=== PATIENT | male | born 1950 | race Caucasian/White ===

== ENCOUNTER 2016-12-14 11:07 | Inpatient (IN) | payer MEDICARE, OTHER ==
--- NOTE | ~2016-12-14 | CN ---
Consultation Report [facility] [address] [place]. [address] NAME: KELSI COLON : 52 STATUS : ADM Cal PAT#: [id number] AGE: 66 ADM/REG DATE : 12/14/16 MR#: [id number] REPORT SERV DATE: 12/14/16 DICTATED BY: DATE: REPORT STATUS : Draft TRANSCRIBED BY: MODL DATE: 12/14/16 CONSULTATION DATE OF CONSULTATION: 12/14/2016 CHIEF COMPLAINT/REASON FOR CONSULT: Atrial fibrillation with rapid ventricular response. HISTORY OF PRESENT ILLNESS: Mr. Colon is a very pleasant 66-year-old gentleman, without significant past medical history. 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 with the smothering sensation. He thought he was on bronchitis and he has been taking cold medicine for several weeks. He sat in a recliner and felt much better. He also walked around his home and felt better. He went to a [facility] the next day and was diagnosed with atrial fibrillation with rapid ventricular response and sent to the emergency room for additional evaluation. The patient denies any chest pain, nausea, vomiting, or sweating he endorses upper respiratory symptoms and shortness of breath. ALLERGIES: NO KNOWN ALLERGIES. MEDICATIONS: Ibuprofen p.r.n. PAST MEDICAL HISTORY: None. SOCIAL HISTORY: The patient is . His is present at the bedside. He quit smoking about 15 years ago. He drinks two alcoholic beverages per week. He does not use extracurricular drugs. FAMILY HISTORY: Significant for a brother with a history of coronary bypass grafting and diabetes in his 50s. REVIEW OF SYSTEMS: All systems were reviewed and is negative except for dictated in HPI. PHYSICAL EXAMINATION: VITAL SIGNS: Blood pressure on arrival to the Emergency Department 151/104. The patient is afebrile, temperature 97.8, pulse is 140 beats per minute, respirations 18, and oxygen saturations 97%. GENERAL: Mr. Colon is a well-groomed 66-year-old gentleman, in no distress. NECK: I could not appreciate jugular venous distention or carotid bruits. HEART: Tachycardic, irregular. Soft S1 and S2. I could not appreciate murmurs, rubs, or gallops. LUNGS: Clear to auscultation in the anterior dalton. There are slight posterior end expiratory wheezes bilaterally. Consultation Report [facility] [address] [place]. [address] NAME: KELSI COLON : 52 STATUS : ADM Cal PAT#: [id number] AGE: 66 ADM/REG DATE : 12/14/16 MR#: [id number] REPORT SERV DATE: 12/14/16 DICTATED BY: DATE: REPORT STATUS : Draft TRANSCRIBED BY: MODL DATE: 12/14/16 ABDOMEN: Soft and nontender. EXTREMITIES: Warm and well perfused. There is no pitting edema present. MUSCULOSKELETAL: No clubbing or cyanosis of the digits. NEUROLOGIC: No focal neurologic deficits appreciated. LABORATORY DATA: Laboratory results note a mild leukocytosis with a white blood cell count of 11.9, hemoglobin is 17.4 hematocrit 49.8, platelet count 228, procalcitonin less than 0.05. Sodium 140 potassium 4, BUN 18, creatinine 1.22, magnesium 2.1, BNP is 191, TSH is 0.9. An EKG performed in the Emergency Department demonstrated atrial fibrillation with rapid ventricular response at 167 beats per minute. There were nonspecific ST-T segment changes present. A chest x-ray demonstrated mild pulmonary edema. IMPRESSION, REPORT, AND PLAN: 1. Atrial fibrillation with rapid ventricular response. 2. Mild pulmonary edema, secondary to the above. 3. Hypertension. RECOMMENDATIONS: 1. I agree with diltiazem drip as previously ordered. 2. Would switch to Eliquis at 5 mg p.o. twice per day. 3. I discussed the risks, benefits, and alternatives of DC cardioversion with the patient and his at the bedside and they are agreeable to proceed on 12/15/2016. 4. Additional recommendations pending clinical course. [facility]/MODL Savanna Cisneros M.D. / [id number] CC: Samir Olivares Jr, MD
--- NOTE | ~2016-12-14 | TEE ---
Transesophageal Echocardiogram [facility] [address] [place]. [address] NAME: KELSI COLON : 52 STATUS : ADM Cla PAT#: [id number] AGE: 66 ADM/REG DATE : 12/14/16 MR#: [id number] REPORT SERV DATE: 12/15/16 DICTATED BY: LUIS KERN DATE: 12/15/16 REPORT STATUS : Draft TRANSCRIBED BY: MODL DATE: 12/15/16 EMERY AND CARDIOVERSION REPORT INDICATION: This 66-year-old with new onset atrial fibrillation with rapid ventricular response. He is on therapeutic anticoagulation with Eliquis. Informed consent was obtained, signed on the chart prior to proceeding. A time-out was performed. Sedation was per Anesthesia, and esophageal intubation was without difficulty. TECH: The overall quality of the study was adequate. FINDINGS: CHAMBERS: 1. The left atrium was at the upper limits of normal, mildly enlarged. Left atrial appendage was examined with multiple angulations and was large and multilobed with a "chicken wing" morphology. There was no thrombus identified. Pectinates were noted. Spectral Doppler velocity exceeded 20 cm/second. 2. The left ventricle was normal in size with a visually estimated LVEF is 55% to 60%. There were no regional wall motion abnormalities. 3. The right atrium was grossly normal in size. The superior and inferior vena cava appeared normal. There was no mass thrombus seen. 4. The right ventricle was normal in size and systolic function. VALVES: 1. The aortic valve morphology was trileaflet. There was mild thickening/sclerosis with adequate leaflet mobility. There was mild somewhat eccentric aortic regurgitation. 2. The mitral valve morphology was normal with fully mobile leaflets. There was mild mitral regurgitation. 3. The pulmonic valve was grossly normal with adequate mobility. There was no significant pulmonic regurgitation. 4. The tricuspid valve morphology was normal with fully mobile leaflets. There was trivial tricuspid regurgitation. OTHER: The interatrial septum was examined with multiple angulations and was intact by visual inspection with no evidence of interatrial shunt by color Doppler. There was no pericardial effusion. The descending thoracic aorta was normal in caliber with no significant atherosclerosis or aneurysmal dilatation. CARDIOVERSION: 1. First attempt at 200 joules with persistent atrial fibrillation and rapid ventricular response. 2. Second attempt at 300 joules with persistent atrial fibrillation with rapid ventricular response. 5 mg of IV metoprolol was given with rate control improved from 140 beats per minute to 90 to 100 beats per minute. Transesophageal Echocardiogram [address] [address] NAME: KELSI COLON : 52 STATUS : ADM Cal PAT#: [id number] AGE: 66 ADM/REG DATE : 12/14/16 MR#: [id number] REPORT SERV DATE: 12/15/16 DICTATED BY: LUIS KERN. DATE: 12/15/16 REPORT STATUS : Draft TRANSCRIBED BY: MODL DATE: 12/15/16 3. Third attempt at cardioversion with 360 joules attempted with a 5 second pause and a single sinus beat, then persistent atrial fibrillation to controlled ventricular response at 90 to 100 beats per minute. COMPLICATIONS: None. CONCLUSION: 1. NO LEFT ATRIAL APPENDAGE THROMBUS. 2. UNSUCCESSFUL CARDIOVERSION AFTER THREE ATTEMPTS INCLUDING 5 MG OF IV METOPROLOL WITH PERSISTENT ATRIAL FIBRILLATION AND CONTROLLED VENTRICULAR RESPONSE WITH METOPROLOL. 3. NORMAL LV SIZE WITH PRESERVED EF, 55% TO 60%. 4. MILD AORTIC VALVE SCLEROSIS WITH MILD REGURGITATION AND NO STENOSIS. 5. MILD MITRAL REGURGITATION. [facility]/MODL Luis Kern M.D. / [id number] CC: Samir Olivares Jr, MD John Laramore, M.D.
--- NOTE | ~2016-12-14 | HP ---
History And Physical [address] [place]. [address] NAME: KELSI COLON : 52 STATUS : ADM Cal PAT#: [id number] AGE: 66 ADM/REG DATE : 12/14/16 MR#: [id number] REPORT SERV DATE: 12/14/16 DICTATED BY: PRAVEENA BRIGGS DATE: 12/14/16 REPORT STATUS : Draft TRANSCRIBED BY: MODL DATE: 12/14/16 DATE OF ADMISSION: 12/14/2016 CHIEF COMPLAINT: Worsening shortness of breath. HISTORY OF PRESENT ILLNESS: Mr. Colon is a 66-year-old male with no significant medical history, who presented to the emergency room with a complaint of worsening shortness of breath. The patient states that his symptoms started approximately three weeks ago, states that at first he thought it was common cold which he thought would eventfully resolve. He states that his symptoms have progressively worsened. So upon awakening this morning, he decided to present to an urgent care. At the time of presentation at the urgent care, preliminary workup noted. His heart rate to be elevated in the 140s. The patient was instructed to present to the emergency room. Upon presentation to the emergency room, preliminary workup included an EKG which was consistent with AFib with RVR. The patient was therefore admitted under Hospitalist Service for further management. At the time of my evaluation, the patient corroborated the above story. He reports history of sick contacts. He also reports a productive cough of greenish sputum. However, he states that he has no fever, no chills. 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 So he has been in contact with several people and states it is likely that he has had a positive sick contact. Otherwise, he denies any lightheadedness and dizziness. He denies any nausea, any vomiting, or any abdominal pain. He denies any orthopnea or paroxysmal nocturnal dyspnea. He denies any decrease in exercise tolerance. He does report an episode of some cold intolerance. At the time of my evaluation, he states that otherwise he feels well and he has no other complaints. REVIEW OF SYSTEMS: A 14-point review of system was performed. All systems were negative except as noted in the HPI. PAST MEDICAL HISTORY: None. PAST SURGICAL HISTORY: The patient has a history of a knee surgery and sinus surgery over 25 years ago. FAMILY HISTORY: Significant for a brother with type 1 diabetes and coronary artery disease. SOCIAL HISTORY: The patient reports a [id number]-smoking history, stating that he quit smoking about 15 years ago. He states that he uses alcohol socially and denies any illicit drug use. The patient is currently and lives at home with his . ALLERGIES: THE PATIENT REPORTS NO KNOWN DRUG ALLERGIES. PHYSICAL EXAMINATION: VITAL SIGNS: Blood pressure 111/72 with the pulse of 140, respiration 17, O2 saturation 96%, and the patient is afebrile. GENERAL: The patient is lying in bed, in no acute distress, appears stated age. History And Physical [address] [address] NAME: KELSI COLON : 52 STATUS : ADM Cal PAT#: [id number] AGE: 66 ADM/REG DATE : 12/14/16 MR#: [id number] REPORT SERV DATE: 12/14/16 DICTATED BY: PRAVEENA BRIGGS DATE: 12/14/16 REPORT STATUS : Draft TRANSCRIBED BY: SHANELLE DATE: 12/14/16 HEENT: Normocephalic and atraumatic. Extraocular motors intact. Oral mucosa is moist. Pupils are equal, round, and reactive to light and accommodation. Sclerae anicteric. NECK: Full. Trachea midline and symmetric. No JVD noted. No thyromegaly present. No lymphadenopathy appreciated. CHEST: Nontender to palpation. No scars noted. CARDIOVASCULAR: Irregularly irregular rate and rhythm. LUNGS: Clear to auscultation bilaterally. ABDOMEN: Obese. Positive bowel sounds. Nontender. Nondistended. EXTREMITIES: No cyanosis, no clubbing, no edema. NEURO: Alert and oriented x3. No focal deficits appreciated. LABORATORY DATA: WBC 11.9, hemoglobin 17.4, hematocrit 49.8 with an MCV of 90.9, platelets 228. Sodium 140, potassium 4, chloride 104, bicarb 23, BUN 18, and creatinine 1.22. BNP 191.1. UA negative. IMAGING: Portable chest x-ray, impression: Diffuse bilateral interstitial opacity which may represent interstitial edema or chronic disease, no significant abnormalities otherwise. ASSESSMENT AND PLAN: 1. Atrial fibrillation with rapid ventricular response, new onset, CHAD2-VASc score of 2. Anticoagulation indicated. Plan: Start the patient on diltiazem drip. Also place patient on heparin drip. We will consult Cardiology for assistance. 2. Hypertension. Blood pressure on presentation elevated systolic of 151. The patient currently on diltiazem drip. We will monitor blood pressure and initiate therapy as needed. 3. History of tobacco use per guidelines. I will obtain a low-dose CT scan to further evaluate his lungs. Chest x-ray concerning for a chronic disease. Also given his age and family history, we will obtain A1c. SHAWN/SHANELLE Praveena Briggs MD / [id number] CC: Samir Olivares Jr, MD John Laramore, M.D.
--- NOTE | ~2016-12-14 | DS ---
Discharge Summary [facility] [address] [place]. [address] NAME: KELSI COLON : 52 STATUS : DIS IN PAT#: [id number] AGE: 66 ADM/REG DATE : 12/15/16 MR#: [id number] REPORT SERV DATE: 02/02/17 DICTATED BY: DATE: REPORT STATUS : Draft TRANSCRIBED BY: MODL DATE: 02/01/17 Data Collection from hospitalization ADDENDUM: DISPOSITION: The patient was discharged home on a low-sodium, low-cholesterol, cardiac diet with activities as instructed. He would follow up with Dr. Savanna Cisneros on 01/04/2017 and with his primary care provider as needed. HOSPITAL COURSE: This is a 66-year-old man who has no significant past medical history. 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 with a smothering sensation. He thought that he had bronchitis and he had been taking cold medication for several weeks. He sat in a recliner and felt much better. He also walked around his home and felt better. Information collected by: Jaymie Salas I submit the above information as my discharge summary. ALYX/SHANELLE Savanna Cisneros M.D. / [id number] CC: Skyla Lujan M.D.
--- NOTE | ~2016-12-14 | DS ---
Discharge Summary [facility] [address] [place]. [address] NAME: KELSI COLON : 52 STATUS : DIS IN PAT#: [id number] AGE: 66 ADM/REG DATE : 12/15/16 MR#: [id number] REPORT SERV DATE: 01/15/17 DICTATED BY: DATE: REPORT STATUS : Draft TRANSCRIBED BY: MODL DATE: 01/14/17 Data Collection from hospitalization DISCHARGE DIAGNOSES: 1. Atrial fibrillation with rapid ventricular response. 2. Hypertension. 3. Former smoker. CONSULTATIONS: Zeyad Brown MD PROCEDURES: 1. CT scan of the chest without contrast, 12/14/2016. 2. Myocardial perfusion imaging study, 12/16/2016. 3. Transesophageal echocardiogram and cardioversion, 12/15/2016. DISCHARGE MEDICATIONS: Pepcid 20 mg daily, Advil 400 mg daily as needed, Lopressor 50 mg twice a day, Xarelto 20 mg with supper, Betapace 80 mg twice a day. He was instructed not to continue the Z-Jason. CONDITION ON DISCHARGE: Stable. DISPOSITION: The patient was and felt much better. He also walked around his house and felt better. He went to a [facility] facility the following day and was diagnosed with atrial fibrillation with rapid ventricular response. He was sent to the emergency room and admitted at this time for further evaluation and treatment. Upon admission, creatinine level was 1.22. EKG in the emergency department demonstrated atrial fibrillation with rapid ventricular response at 167 beats per minute. There were nonspecific ST-segment changes present. Chest x-ray demonstrated mild pulmonary edema. Cardizem drip had been started. He was going to be switched to Eliquis. White blood cell count was 11.9. It was felt that the patient may need to undergo DC cardioversion. The patient was seen by Dr. Zeyad Brown. Blood pressure on presentation was elevated at systolic of 151. The patient was currently on a diltiazem drip. Hemoglobin A1c was going to be checked. The patient had been started on a heparin drip. On the , the patient underwent transesophageal echocardiogram. There was unsuccessful cardioversion. There was no left atrial appendage thrombus. He had normal left ventricular size with preserved ejection fraction of 55% to 60%. He had mild aortic regurgitation and mitral regurgitation. A CT scan of the chest without contrast was performed. He had small bilateral pleural effusions with dense atelectasis/consolidation in the posterior basilar aspect of both lungs. There was a perifissural nodule in the right upper lobe abutting the minor fissure measuring 4 x 6 mm. It was felt this was likely to represent an intrapulmonary lymph node. Eliquis and metoprolol were continued. TSH level was normal. On 12/16/2016, he had no chest pain or shortness of breath. The patient noticed that he had an elevated heart rate when he was going to the bathroom. Xarelto was continued. Metoprolol was increased. Myocardial perfusion imaging study was performed, this demonstrated no ischemia. Post infusion left ventricular ejection fraction was 31%. The next day, he described having some chest tightness at times. He did not feel like his Discharge Summary [address] [address] NAME: KELSI COLON : 52 STATUS : DIS IN [facility]#: [id number] AGE: 66 ADM/REG DATE : 12/15/16 MR#: [id number] REPORT SERV DATE: 01/15/17 DICTATED BY: DATE: REPORT STATUS : Draft TRANSCRIBED BY: MODL DATE: 01/14/17 heart was racing. Discharge planning was performed. On 12/18/2016, he had no chest pain or shortness of breath. He had no palpitations. Metoprolol was continued as well sotalol and Xarelto. Ibutilide was given and he was in a sinus rhythm at 70 beats per minute. Discharge instructions were given. Due to his improved and stable condition, he was discharged home with the above-stated instructions. Information collected by: Jaymie Salas I submit the above information as my discharge summary. TG/MODL Savanna Cisneros M.D. / [id number] CC: Skyla Lujan M.D.
[2016-12-14 12:07] LABS: BASOPHILS 0.3 %; BASOPHILS ABSOLUTE 0.03 10/3/uL (0.0-0.16); EOSINOPHILS 0.4 %; EOSINOPHILS ABSOLUTE 0.05 10/3/uL (0.0-0.53); ER CBC TAT 0 Hrs 09 Mins; HEMATOCRIT 49.8 % (40.0-51.0); HEMOGLOBIN 17.4 g/dL (13.6-17.8); IMMATURE GRANULOCYTES 0.3 %; IMMATURE GRANULOCYTES ABSOLUTE 0.04 10/3/uL (0.0-0.11); LYMPHOCYTES 10.7 %; LYMPHOCYTES ABSOLUTE 1.27 10/3/uL (0.67-4.30); MEAN CORPUS HGB CONC 34.9 g/dL (32.0-36.0); MEAN CORPUSCULAR HEMOGLOB 31.8 pg (26.0-34.0); MEAN CORPUSCULAR VOLUME 90.9 fL (80-100); MEAN PLATELET VOLUME 9.8 fL (9.2-13.0); MONOCYTES 6.6 %; MONOCYTES ABSOLUTE 0.78 10/3/uL (0.21-1.20); NEUTROPHILS 81.7 %; NEUTROPHILS ABSOLUTE 9.69 10/3/uL (2.02-8.40); PLATELET COUNT 228 10/3/uL (150-400); RBC DISTRIBUTION WIDTH 12.9 % (12.0-16.0); RED CELL COUNT 5.48 10/6/uL (4.7-6.1); WHITE BLOOD CELLS 11.9 10/3/uL (4.5-10.5)
[2016-12-14] MEDS ORDERED: ADVIL PO (12:08)
[2016-12-14 12:12] LABS: MANUAL DIFF NO %
[2016-12-14 12:13] LABS: INTERNATIONAL NORMAL RATI 1.1 UNITS (-); PARTIAL THROMBO TIME 27.4 SEC (22.5-37.2); PROTIME (NOT ORD) 13.6 SEC (12.0-14.5)
[2016-12-14] MEDS ORDERED: Z-PAK PO (12:15)
[2016-12-14 12:33] LABS: BUN (BLOOD UREA NITROGEN) 18 MG/DL (6-23); CALCIUM, SERUM 8.8 MG/DL (8.5-10.4); CHLORIDE, SERUM 104 MMOL/L (96-112); CO2 (CARBON DIOXIDE) 23 MMOL/L (24-34); CREATININE 1.22 MG/DL (0.70-1.30); GFR AFRICAN AMERICAN 72 ML/MIN (>=60); GFR NON AFRICAN AMERICAN 62 ML/MIN (>=60); GLUCOSE, SERUM 123 MG/DL (60-99); SODIUM, SERUM 140 MMOL/L (135-148); TROPONIN I 0.03 NG/ML (<0.05)
[2016-12-14 12:34] LABS: CHEST PAIN PROFILE TAT 0 Hrs 35 Mins
[2016-12-14 13:56] LABS: WBC (NOT ORDERED) (RFLEX) 0 (0-5)
[2016-12-14 14:01] LABS: ASCORBIC ACID (UR NOT ORDER) NEG (NEG); BILIRUBIN, URINE NEGATIVE (NEG); ER URINALYSIS TAT 0 Hrs 07 Mins; KETONE, URINE TRACE MG/DL (NEG); LEUKOCYTE ESTERASE(NOT OR NEG (NEG); NITRITE (URINE) NEG (NEG)
[2016-12-14 14:45] LABS: PROCALCITONIN <0.05 ng/mL (<0.5)
[2016-12-15 05:39] LABS: BASOPHILS 0.6 %; BASOPHILS ABSOLUTE 0.06 10/3/uL (0.0-0.16); EOSINOPHILS 2.1 %; HEMOGLOBIN 14.6 g/dL (13.6-17.8); IMMATURE GRANULOCYTES 0.3 %; IMMATURE GRANULOCYTES ABSOLUTE 0.03 10/3/uL (0.0-0.11); LYMPHOCYTES 28.4 %; LYMPHOCYTES ABSOLUTE 2.75 10/3/uL (0.67-4.30); MEAN CORPUS HGB CONC 34.8 g/dL (32.0-36.0); MEAN CORPUSCULAR HEMOGLOB 31.6 pg (26.0-34.0); MEAN CORPUSCULAR VOLUME 90.7 fL (80-100); MEAN PLATELET VOLUME 9.6 fL (9.2-13.0); MONOCYTES 10.4 %; MONOCYTES ABSOLUTE 1.01 10/3/uL (0.21-1.20); NEUTROPHILS 58.2 %; NEUTROPHILS ABSOLUTE 5.65 10/3/uL (2.02-8.40); PLATELET COUNT 191 10/3/uL (150-400); RBC DISTRIBUTION WIDTH 13.2 % (12.0-16.0); RED CELL COUNT 4.62 10/6/uL (4.7-6.1); WHITE BLOOD CELLS 9.7 10/3/uL (4.5-10.5)
[2016-12-15 05:42] LABS: HEMATOCRIT 41.9 % (40.0-51.0); MANUAL DIFF NO %
[2016-12-15 05:58] LABS: A/G RATIO 1.3 (0.7-1.9); ALBUMIN 3.4 G/DL (3.5-5.0); ALKALINE PHOSPHATASE 77 U/L (45-117); BUN (BLOOD UREA NITROGEN) 17 MG/DL (6-23); CALCIUM, SERUM 8.4 MG/DL (8.5-10.4); CHLORIDE, SERUM 105 MMOL/L (96-112); CHOL/HDL RATIO(NOT ORDER) 2.5 (0-5); CHOLESTEROL 133 MG/DL (< 200); CO2 (CARBON DIOXIDE) 24 MMOL/L (24-34); CREATININE 1.07 MG/DL (0.70-1.30); GFR AFRICAN AMERICAN 84 ML/MIN (>=60); GFR NON AFRICAN AMERICAN 72 ML/MIN (>=60); GLOBULIN 2.6 G/DL (2.5-4.1); GLUCOSE, SERUM 99 MG/DL (60-99); HDL CHOLESTEROL 54 MG/DL (> 39); LDL CHOLESTEROL 58 MG/DL (< 130); NON-HDL CHOLESTEROL 79 MG/DL (< 160); POTASSIUM, SERUM 3.9 MMOL/L (3.5-5.3); SGOT(AST) 19 U/L (5-40); SGPT(ALT) 47 U/L (5-65); SODIUM, SERUM 140 MMOL/L (135-148); TOTAL BILIRUBIN 1.8 MG/DL (0-1.2); TRIGLYCERIDE 105 MG/DL (< 150)
[2016-12-18 05:17] LABS: HEMOGLOBIN 16.4 g/dL (13.6-17.8); MEAN CORPUS HGB CONC 34.2 g/dL (32.0-36.0); MEAN CORPUSCULAR HEMOGLOB 31.6 pg (26.0-34.0); MEAN CORPUSCULAR VOLUME 92.3 fL (80-100); MEAN PLATELET VOLUME 9.9 fL (9.2-13.0); PLATELET COUNT 197 10/3/uL (150-400); RBC DISTRIBUTION WIDTH 13.4 % (12.0-16.0); RED CELL COUNT 5.19 10/6/uL (4.7-6.1); WHITE BLOOD CELLS 10.8 10/3/uL (4.5-10.5)
[2016-12-18 05:18] LABS: HEMATOCRIT 47.9 % (40.0-51.0); MANUAL DIFF YES %
[2016-12-18 05:30] LABS: CALCIUM, SERUM 8.3 MG/DL (8.5-10.4); CHLORIDE, SERUM 109 MMOL/L (96-112); CO2 (CARBON DIOXIDE) 23 MMOL/L (24-34); GFR AFRICAN AMERICAN 66 ML/MIN (>=60); GFR NON AFRICAN AMERICAN 57 ML/MIN (>=60); GLUCOSE, SERUM 108 MG/DL (60-99); INTERNATIONAL NORMAL RATI 2.2 UNITS (-); SODIUM, SERUM 142 MMOL/L (135-148)
[2016-12-18 05:31] LABS: PROTIME (NOT ORD) 24.6 SEC (12.0-14.5)
[2016-12-18 05:34] LABS: BUN (BLOOD UREA NITROGEN) 21 MG/DL (6-23)
[2016-12-18 06:51] LABS: BAND NEUTROPHILS 1 %; EOSINOPHILS 1 %; EOSINOPHILS ABSOLUTE (CALC) 0.11 10/3/uL (0.0-0.53); LYMPHOCYTES 23 %; LYMPHOCYTES ABSOLUTE (CALC) 2.48 10/3/uL (0.67-4.30); MONOCYTES 5 %; MONOCYTES ABSOLUTE (CALC) 0.54 10/3/uL (0.21-1.20); NEUTROPHILS ABSOLUTE (CALC) 7.67 10/3/uL (2.02-8.40); SEGMENTED NEUTROPHIL (0) 70 %; TOTAL NUCLEATED CELLS 100
[2016-12-18 06:52] LABS: GIANT PLATELET RARE; PLATELET ESTIMATE ADQ (ADEQUATE); RBC MORPHOLOGY NORM (NORMAL)
[2016-12-18] MEDS ORDERED: PEP20 PO (13:12)
[2016-12-18] MEDS ORDERED: LOP50 PO (13:13)
[2016-12-18] MEDS ORDERED: XARELTO20 MG PO (13:14)
[2016-12-18] MEDS ORDERED: BETAPACE80 PO (13:15)
== END 2016-12-18 14:30 | disposition home or self-care (01) | DRG 309 ==
LOC: ER 11:07 → CDU1 17:06 → 6NO 12-17 08:01
PROVIDERS: Emergency Medicine; Hospitalist; Internal Medicine
PROC: B246ZZ4 Ultrasonography of Right and Left Heart, Transesophageal (ICD-10-PCS; principal; 2016-12-15)
PROC: 5A2204Z Restoration of Cardiac Rhythm, Single (ICD-10-PCS; 2016-12-15)
DX: I48.1 Persistent atrial fibrillation (principal); J81.1 Chronic pulmonary edema; I10 Essential (primary) hypertension; Z87.891 Personal history of nicotine dependence; Z83.3 Family history of diabetes mellitus
CPT/HCPCS: 71010; 71250; 78452; 80048; 80053; 80061; 81001; 82962; 83036; 83735; 83880; 84145; 84443; 84484; 85025; 85610; 85730; 87040; 92960; 93005; 93017; 93312; 93320; 93325; 96365; 96366; 96376; 99285; A9270-GY; A9502; J0153; J1742

== ENCOUNTER 2016-12-25 10:00 | Observation (INO) | payer MEDICARE, OTHER ==
--- NOTE | ~2016-12-25 | CN ---
Consultation Report [facility] [address] [place]. [address] NAME: KELSI COLON : 52 STATUS : DIS Cal PAT#: [id number] AGE: 66 ADM/REG DATE : 12/25/16 MR#: [id number] REPORT SERV DATE: 12/25/16 DICTATED BY: HEMA AQUINO DATE: 12/25/16 REPORT STATUS : Draft TRANSCRIBED BY: MODL DATE: 12/25/16 ELECTROPHYSIOLOGY CONSULTATION DATE OF CONSULTATION: [facility] PHYSICIAN: Dr. Cisneros. PRIMARY PROVIDER: Dr. Corrales. REQUESTING PROVIDER: Dr. Hendrickson. He had received a call by the patient earlier this morning and requested EP consultation and Dr. Moore in the emergency room. HISTORY OF PRESENT ILLNESS: Mr. Kelsi Colon is a very pleasant 66-year-old man with new onset of paroxysmal atrial fibrillation. Of interest, it has been refractory to cardioversion. The patient underwent two attempts at cardioversion middle of the week ago, both were unsuccessful. The next day, he was given ibutilide with return to sinus rhythm. He did well for several days. Then last evening had recurrent symptoms of some mild chest pressure and increased heart rate. He went to sleep, woke up this morning, was still in atrial fibrillation and opted to come to the emergency room. He presented to the emergency room in atrial fibrillation with RVR with an ECG heart rate of 140 beats per minute. I was contacted earlier by the ER doctor and at that point, the patient was given ibutilide 1 mg and the patient did convert back to sinus bradycardia. Followup ECG is pending and based on that, we will make decisions regarding further adjustment of his antiarrhythmic therapy. The patient reports no significant past medical history other than atrial fibrillation. SOCIAL HISTORY: Quit smoking 15 years ago. Rare alcohol. . Retired, for 2 weeks, he used to run a golf course. FAMILY HISTORY: Notable for premature CAD. REVIEW OF SYSTEMS: As per the HPI. Otherwise, all the review of systems negative. MEDICATIONS: At home are Pepcid; Lopressor; Xarelto; and sotalol 80 mg b.i.d. ALLERGIES: NONE KNOWN. PHYSICAL EXAMINATION: VITAL SIGNS: Blood pressure 107/73, pulse 43 after a pharmacologic cardioversion with ibutilide, respiratory rate 18, and oxygen saturation 96% on room air. GENERAL: Appears stated age, no distress. EYES: Sclerae anicteric, no arcus senilis. MOUTH: Oral mucosa moist, lips acyanotic. Consultation Report [facility] [place]. [address] NAME: KELSI COLON : 52 STATUS : DIS Cal PAT#: [id number] AGE: 66 ADM/REG DATE : 12/25/16 MR#: [id number] REPORT SERV DATE: 12/25/16 DICTATED BY: HEMA AQUINO DATE: 12/25/16 REPORT STATUS : Draft TRANSCRIBED BY: SHANELLE DATE: 12/25/16 NECK: Jugular venous pressure normal, no carotid bruits. LUNGS: Clear to auscultation bilaterally, normal inspiratory effort. CARDIAC: Irregular rhythm with bradycardia rhythm, no murmurs, gallops or rubs. ABDOMEN: Soft, nondistended, nontender. EXTREMITIES: No edema. SKIN: Warm and dry. NEURO/PSYCH: Alert and oriented, nonfocal, mood appropriate. IMAGING: EMERY demonstrates normal ejection fraction. No significant mitral regurgitation and mildly enlarged left atrium. ECG from presentation is atrial fibrillation with a ventricular response of 140 beats per minute. QTc on initial ECG 506, repeat QTc 465. DATA: Sodium is 135, potassium 3.6, creatinine 1.3, hemoglobin 18. Troponin 0.2. IMPRESSION: 1. Recurrent paroxysmal atrial fibrillation, now status post cardioversion pharmacologic. 2. Sinus bradycardia. RECOMMENDATIONS: The patient will be admitted to the observation unit for monitoring after cardioversion. If remains in sinus rhythm, he could be discharged to home later today. I would recommend discontinuing his metoprolol and increasing sotalol to 120 mg twice daily with a followup ECG early next week. GKB/SHANELLE Hema Aquino M.D. / [id number] CC: Samir Hendrickson M.D., Ph.D, F.A.C.C. Zeyad Corrales M.D. Savanna Cisneros M.D.
[2016-12-25 09:43] LABS: BASOPHILS 0.7 %; BASOPHILS ABSOLUTE 0.07 10/3/uL (0.0-0.16); EOSINOPHILS 1.8 %; EOSINOPHILS ABSOLUTE 0.18 10/3/uL (0.0-0.53); HEMATOCRIT 51.2 % (40.0-51.0); HEMOGLOBIN 18.8 g/dL (13.6-17.8); IMMATURE GRANULOCYTES 0.3 %; IMMATURE GRANULOCYTES ABSOLUTE 0.03 10/3/uL (0.0-0.11); LYMPHOCYTES ABSOLUTE 1.94 10/3/uL (0.67-4.30); MEAN CORPUSCULAR HEMOGLOB 32.4 pg (26.0-34.0); MEAN PLATELET VOLUME 9.5 fL (9.2-13.0); MONOCYTES 10.1 %; MONOCYTES ABSOLUTE 1.03 10/3/uL (0.21-1.20); NEUTROPHILS 68.1 %; NEUTROPHILS ABSOLUTE 6.94 10/3/uL (2.02-8.40); PLATELET COUNT 227 10/3/uL (150-400); RED CELL COUNT 5.81 10/6/uL (4.7-6.1); WHITE BLOOD CELLS 10.2 10/3/uL (4.5-10.5)
[2016-12-25 09:47] LABS: MANUAL DIFF NO %; MEAN CORPUS HGB CONC 36.7 g/dL (32.0-36.0); MEAN CORPUSCULAR VOLUME 88.1 fL (80-100)
[2016-12-25 09:51] LABS: INTERNATIONAL NORMAL RATI 1.8 UNITS (-); PARTIAL THROMBO TIME 34.3 SEC (22.5-37.2); PROTIME (NOT ORD) 20.6 SEC (12.0-14.5)
[~2016-12-25 10:00] MED LIST: ADVIL PO; BETAPACE80 PO; LOP50 PO; PEP20 PO; XARELTO20 MG PO; Z-PAK PO
[2016-12-25 10:02] LABS: CALCIUM, SERUM 8.7 MG/DL (8.5-10.4); CHEST PAIN PROFILE TAT 0 Hrs 23 Mins; CHLORIDE, SERUM 102 MMOL/L (96-112); CO2 (CARBON DIOXIDE) 27 MMOL/L (24-34); CREATININE 1.31 MG/DL (0.70-1.30); GFR AFRICAN AMERICAN 66 ML/MIN (>=60); GFR NON AFRICAN AMERICAN 57 ML/MIN (>=60); POTASSIUM, SERUM 4.6 MMOL/L (3.5-5.3); TROPONIN I 0.02 NG/ML (<0.05)
[2016-12-25 10:03] LABS: BUN (BLOOD UREA NITROGEN) 17 MG/DL (6-23); GLUCOSE, SERUM 139 MG/DL (60-99); SODIUM, SERUM 135 MMOL/L (135-148)
[2016-12-25 10:07] LABS: PLATELET ESTIMATE ADQ (ADEQUATE); RBC MORPHOLOGY NORM (NORMAL)
[2016-12-25 14:40] LABS: ALBUMIN 3.9 G/DL (3.5-5.0); DIRECT BILIRUBIN 0.2 MG/DL (0.0-0.4); FREE T4 1.17 NG/DL (0.76-1.46); SGOT(AST) 27 U/L (5-40); SGPT(ALT) 56 U/L (5-65)
[2016-12-25 14:41] LABS: ALKALINE PHOSPHATASE 114 U/L (45-117); INDIRECT BILIRUBIN(NOT ORDER) 0.6 MG/DL (0.1-0.9); TOTAL BILIRUBIN 0.8 MG/DL (0-1.2); TOTAL PROTEIN 7.3 G/DL (6.0-8.5)
[2016-12-25] MEDS ORDERED: BETAP120 PO (15:36)
[2016-12-25] MEDS ORDERED: LOP50 PO (15:36)
== END 2016-12-25 15:57 | disposition home or self-care (01) ==
LOC: ER 10:00 → CDU1 10:16
PROVIDERS: Emergency Medicine
DX: I48.0 Paroxysmal atrial fibrillation (principal); R00.1 Bradycardia, unspecified; J43.9 Emphysema, unspecified; I10 Essential (primary) hypertension; Z87.891 Personal history of nicotine dependence; Z79.01 Long term (current) use of anticoagulants; Z79.899 Other long term (current) drug therapy
CPT/HCPCS: 71010; 80048; 80076; 83735; 83880; 84439; 84443; 84484; 85025; 85610; 85730; 93005; 99285; A9270-GY; G0378; J1742

== ENCOUNTER 2017-01-01 21:40 | Inpatient (IN) | payer MEDICARE, OTHER ==
--- NOTE | ~2017-01-01 | DS ---
Discharge Summary [facility] [address] [place]. [address] NAME: KELSI COLON : 52 STATUS : DIS IN PAT#: [id number] AGE: 66 ADM/REG DATE : 01/02/17 MR#: [id number] REPORT SERV DATE: 01/15/17 DICTATED BY: HEMA AQUINO DATE: 01/14/17 REPORT STATUS : Draft TRANSCRIBED BY: MODMaegan DATE: 01/14/17 Data Collection from hospitalization DISCHARGE DIAGNOSIS(ES): 1. Atrial fibrillation - persistent. 2. Typical atrial flutter. 3. Hypertension. 4. Coronary artery disease. 5. Chronic obstructive pulmonary disease. 6. Gastroesophageal reflux disease. 7. Former smoker. CONSULTATIONS: Agustin Tinsley M.D. PROCEDURES PERFORMED: 1. Cardiac catheterization, 01/04/2017. 2. Ablation, 01/06/2017. MEDICATIONS: Pepcid 10 mg twice a day, Betapace 120 mg twice a day, Xarelto 20 mg every evening, and Murray nasal spray two to three sprays nasally as needed. CONDITION AT DISCHARGE: Stable. DISPOSITION: The patient was discharged home on a low-sodium, low-cholesterol, cardiac diet with activities as instructed. He would follow up with Dr. Savanna Cisneros on 01/12/[address] Hema Aquino on 02/04/2017. HOSPITAL COURSE: This is a 66-year-old man who over the past three weeks prior to this admission has had multiple admissions for recurrent atrial fibrillation. He has failed cardioversion on two separate occasions but did have successful cardioversion with ibutilide on two separate occasions. He has had sotalol titrated during this time. The evening prior to this admission he developed palpitations with tachycardia and presented to the emergency room and was found to have a heart rate in the high 140s. The patient is on IV diltiazem with reasonable rate control. He denied any precordial chest pain or shortness of breath. He was admitted to the hospital for further evaluation and treatment. Upon admission, he was seen by Dr. Rivero. His troponin was 0.02. Creatinine was 1.29. EKG revealed atrial fibrillation with rapid ventricular response with a heart rate of 150. We were going to stop the sotalol and initiate amiodarone. We were going to see if he was an ablation candidate. Xarelto was going to be continued for stroke prophylaxis. Statin therapy was going to be initiated for secondary prevention. Blood pressure was well controlled on his current medical regimen. On the , the patient was taken to the cardiac senior cytogenetics laboratory director where he underwent the above-mentioned procedure by Dr. Rhett Hebert. He tolerated this well. There were no complications. His coronary arteriography had shown no significant occlusive disease. He had normal left ventricular systolic function. During atrial fibrillation, the patient is weak, fatigue, and has low energy with some effort to intolerance and increased shortness of breath. His ECG on presentation had revealed atrial fibrillation with rapid ventricular response. He had now Discharge Summary [address] [place]. [address] NAME: KELSI COLON : 52 STATUS : DIS IN PAT#: [id number] AGE: 66 ADM/REG DATE : 01/02/17 MR#: [id number] REPORT SERV DATE: 01/15/17 DICTATED BY: HEMA AQUINO DATE: 01/14/17 REPORT STATUS : Draft TRANSCRIBED BY: SHANELLE DATE: 01/14/17 converted to sinus bradycardia. White count was 11, creatinine was 1.16. We discussed the anticipated need for ongoing antiarrhythmic and possibly even pacemaker support at some point. This was discussed with the patient and his family and they agreed to proceed. The patient had recently had a transesophageal echocardiogram and had been on therapeutic anticoagulation. Transesophageal echocardiogram would not be required at this time. We would bridge with heparin until his procedure. On 01/05/2017, he had no new complaints. Echocardiogram from 12/15/2016 had revealed ejection fraction of 55%-60%. Plans were being made for radiofrequency ablation to be performed. The following day, he had no shortness of breath or chest pain. He remained asymptomatic with rapid ventricular response and pauses. We would readdress anticoagulation after ablation. The patient was taken to the electrophysiology laboratory where I performed the above-mentioned procedure. He tolerated this well. There were no complications. Sotalol would be resumed with plans for weaning. Discharge planning was performed. On 01/07/2017, the patient felt well. He had had no atrial fibrillation/atrial flutter overnight. He was alert and cooperative. He was in a sinus rhythm at this time. Xarelto was resumed. Discharge instructions were given. Due to his improved and stable condition, he was discharged home with the above-stated instructions. Information collected by: Jaymie Salas I submit the above information as my discharge summary. ALYX/SHANELLE Hema Aquino M.D. / [id number] CC: Skyla Recinos M.D. Van Stephen Monroe Jr., M.D.
--- NOTE | ~2017-01-01 | HP ---
History And Physical [facility] [address] [place]. [address] NAME: KELSI COLON : 52 STATUS : ADM Cal PAT#: [id number] AGE: 66 ADM/REG DATE : 01/01/17 MR#: [id number] REPORT SERV DATE: 01/02/17 DICTATED BY: ZAYDA TINSLEY JR. DATE: 01/02/17 REPORT STATUS : Draft TRANSCRIBED BY: SHANELLE DATE: 01/02/17 DATE OF ADMISSION: 01/01/2017 CHIEF COMPLAINT: Palpitations, recurrent atrial fibrillation. HISTORY OF PRESENT ILLNESS: Mr. Colon is a 66-year-old white male, who over the last three weeks has had multiple admissions for recurrent atrial fibrillation. He failed cardioversion on two separate occasions, but did have successful cardioversion with ibutilide on two separate occasions. The patient has had sotalol titrated during this time period. Last evening, the patient developed palpitations with tachycardia, presenting to the ER with a heart rate in the high 140s. The patient is on IV diltiazem with reasonable rate control. He denies precordial chest pain or shortness of breath. PAST MEDICAL HISTORY: Includes paroxysmal atrial fibrillation. He has coronary artery disease with moderate coronary calcification, especially in the LAD noted on CT scanning of the chest on 12/15/2016. He had a stress test on 12/16/2016 with an ejection fraction of 31%, but no ischemia. EMERY on 12/15/2016 revealed an ejection fraction of 55% to 60% with no significant valvular abnormality. He has COPD and hypertension. He denies prior TIA or stroke. He has gastroesophageal reflux disease. ALLERGIES: DENIED. SOCIAL HISTORY: The patient quit smoking 15 years ago. He does not drink or use recreational drugs. FAMILY HISTORY: Significant for a brother with midlife CABG with parents who are alive in their 90s. REVIEW OF SYSTEMS: He denies fever, chills, bleeding diathesis, sudden weight gain or weight loss. Remainder as in HPI or negative. PHYSICAL EXAMINATION: GENERAL: Well developed, well nourished, in no acute distress. HEENT: Anicteric. No scleral injection. No oral lesions. NECK: No JVD. Supple. No bruits. LUNGS: Clear to auscultation. No hyperexpansion. CARDIAC: Irregularly irregular rhythm. ABDOMEN: Soft, nontender. Normoactive bowel sounds. No hepatosplenomegaly. EXTREMITIES: No clubbing, cyanosis, or edema. SKIN: No visible rashes. NEURO/PSY: Normal affect. Alert and oriented x 3. VITAL SIGNS: Blood pressure is 126/75, heart rate is 75, respirations 16. LABORATORY DATA: Troponin 0.02. Potassium is 4.3, creatinine is 1.29. White count is 9.9, hematocrit is 52, platelets are 217. History And Physical [address] [address] NAME: KELSI COLON : 52 STATUS : ADM Cal PAT#: [id number] AGE: 66 ADM/REG DATE : 01/01/17 MR#: [id number] REPORT SERV DATE: 01/02/17 DICTATED BY: ZAYDA TINSLEY JR. DATE: 01/02/17 REPORT STATUS : Draft TRANSCRIBED BY: SHANELLE DATE: 01/02/17 EKG: EKG reveals atrial fibrillation with a rapid ventricular response, heart rate of 150. MEDICAL DECISION MAKIN. Paroxysmal atrial fibrillation. The patient has had multiple recurrences over the last three weeks despite titration of sotalol. He has failed electrical cardioversion on separate occasions. He has had successful cardioversion with ibutilide. We are going to stop the sotalol and initiate amiodarone 400 p.o. b.i.d. We will re-involve Electrophysiology to see if he is an ablation candidate. He will continue Xarelto stroke prophylaxis. 2. Coronary artery disease. The patient had moderate coronary calcification on CT scan on 12/15, especially in the LAD territory. Stress testing did not reveal ischemia. However, he had a decline in function. Curious if this was ischemic decline versus gating. He is asymptomatic with no active angina currently. 3. Lipid status. With his diagnosis of ischemic heart disease, we will initiate statin therapy for secondary prevention. 4. Hypertension. This is well controlled on current medical therapy. RORY/SHANELLE Zayda Tinsley Jr., M.D. / [id number] CC: Skyla Recinos M.D. Gregory Keith Bruce, M.D. Lisa Gail Carkner, M.D.
--- NOTE | ~2017-01-01 | CN ---
Consultation Report [facility] [address] [place]. [address] NAME: KELSI COLON : 52 STATUS : ADM IN [facility]#: [id number] AGE: 66 ADM/REG DATE : 01/02/17 MR#: [id number] REPORT SERV DATE: 01/04/17 DICTATED BY: HEMA AQUINO DATE: 01/04/17 REPORT STATUS : Draft TRANSCRIBED BY: MODL DATE: 01/04/17 ELECTROPHYSIOLOGY CONSULTATION DATE OF CONSULTATION: 01/03/2017 INDICATIONS: Persistent atrial fibrillation. HISTORY OF PRESENT ILLNESS: Kelsi Colon is a 66-year-old man who I had originally met on 12/25/2016, at which time, he had presented yet again to the emergency room with AFib and RVR. He was given ibutilide converted to sinus rhythm and was discharged to home. He had been recently in the hospital with AFib, RVR and able to be cardioverted electrically, but did cardiovert with ibutilide. This is a second infusion of ibutilide over approximately 7 to 10 days. The patient then presented back to the emergency room two evenings ago with AFib and RVR. This is despite sotalol 120 mg twice daily. He underwent coronary arteriography this morning that showed no significant occlusive disease. He has normal LV systolic function. Electrophysiology is consulted. During AFib, the patient has weak, fatigue, low energy, some effort to intolerance, and increased shortness of breath. No syncope or presyncope. PAST MEDICAL HISTORY: Persistent AFib as described. Former smoker, quit 15 years ago. SOCIAL HISTORY: No present smoking, quit 15 years ago. Rare alcohol. . FAMILY HISTORY: Noted for premature CAD. REVIEW OF SYSTEMS: As per the HPI. Otherwise, all review of systems negative. ALLERGIES: NONE KNOWN. MEDICATIONS: As listed in the [facility] medicine form and reviewed. Notable for sotalol 120 mg daily and NOAC. PHYSICAL EXAMINATION: VITAL SIGNS: Blood pressure 94/54, pulse currently 48, respiratory rate is 18. GENERAL: Appears stated age, no distress. EYES: Sclerae anicteric, no arcus senilis. MOUTH: Oral mucosa moist, lips acyanotic. NECK: Jugular venous pressure normal, no carotid bruits. LUNGS: Clear to auscultation bilaterally, normal inspiratory effort. CARDIAC: Regular rhythm. Bradycardia. ABDOMEN: Soft, nondistended, nontender. EXTREMITIES: No edema. SKIN: Warm and dry. Consultation Report [facility] [id number] [place]. [address] NAME: KELSI COLON : 52 STATUS : ADM IN PAT#: [id number] AGE: 66 ADM/REG DATE : 01/02/17 MR#: [id number] REPORT SERV DATE: 01/04/17 DICTATED BY: HEMA AQUINO DATE: 01/04/17 REPORT STATUS : Draft TRANSCRIBED BY: SHANELLE DATE: 01/04/17 NEURO/PSYCH: Alert and oriented, nonfocal, mood appropriate. ECG on presentation is AFib with RVR. The patient now converted to sinus bradycardia. DATA: White count 11, hemoglobin 18, platelets 210. Potassium 3.9. Creatinine 1.16. Chest x-ray shows no acute process. IMPRESSION: Recurrent persistent atrial fibrillation refractory to sotalol. I have discussed with the patient, daughter, and treatment options for atrial fibrillation. We have discussed alternative antiarrhythmic. We did discuss percutaneous ablation for atrial fibrillation. We discussed consideration of surgical ablation for atrial fibrillation. We have discussed in depth ablation for atrial fibrillation from a percutaneous approach. We have addressed the rationale, logistics, and risks of the procedure. We have addressed risks to include, but not limited to bleeding, infection, vascular complications, myocardial infarction, stroke, cardiac perforation, atrial esophageal injury, pulmonary vein injury, possibly recurrent arrhythmia, vascular access issues. All questions were answered. Estimated level of efficacy in the range of 50% to 60% with a 3% to 4% risk of complication. Discussed anticipated need for ongoing antiarrhythmic and possibly even pacemaker support at some point. All questions were answered and the patient and family wished to proceed. As the patient recently had EMERY and has been on therapeutic anticoagulation, EMERY will not be required. We will bridge with heparin until his procedure on Wednesday. All questions answered. GEORGE/SHANELLE Hema Aquino M.D. / [id number] CC: Skyla Recinos M.D.
[~2017-01-01 21:40] MED LIST changes: +BETAP120 PO
[2017-01-01 22:15] LABS: BASOPHILS 0.5 %; BASOPHILS ABSOLUTE 0.05 10/3/uL (0.0-0.16); EOSINOPHILS 2.1 %; EOSINOPHILS ABSOLUTE 0.21 10/3/uL (0.0-0.53); ER CBC TAT 0 Hrs 08 Mins; HEMOGLOBIN 18.7 g/dL (13.6-17.8); IMMATURE GRANULOCYTES 0.2 %; IMMATURE GRANULOCYTES ABSOLUTE 0.02 10/3/uL (0.0-0.11); LYMPHOCYTES 29.3 %; LYMPHOCYTES ABSOLUTE 2.91 10/3/uL (0.67-4.30); MEAN PLATELET VOLUME 9.8 fL (9.2-13.0); MONOCYTES 9.8 %; MONOCYTES ABSOLUTE 0.97 10/3/uL (0.21-1.20); NEUTROPHILS 58.1 %; NEUTROPHILS ABSOLUTE 5.76 10/3/uL (2.02-8.40); PLATELET COUNT 217 10/3/uL (150-400); RBC DISTRIBUTION WIDTH 12.8 % (12.0-16.0); RED CELL COUNT 5.84 10/6/uL (4.7-6.1); WHITE BLOOD CELLS 9.9 10/3/uL (4.5-10.5)
[2017-01-01 22:16] LABS: MANUAL DIFF NO %
[2017-01-01 22:23] LABS: INTERNATIONAL NORMAL RATI 1.7 UNITS (-); PARTIAL THROMBO TIME 33.6 SEC (22.5-37.2); PROTIME (NOT ORD) 20.1 SEC (12.0-14.5)
[2017-01-01 22:32] LABS: CALCIUM, SERUM 8.8 MG/DL (8.5-10.4); CHEST PAIN PROFILE TAT 0 Hrs 25 Mins; CHLORIDE, SERUM 106 MMOL/L (96-112); CO2 (CARBON DIOXIDE) 26 MMOL/L (24-34); CREATININE 1.29 MG/DL (0.70-1.30); GFR AFRICAN AMERICAN 67 ML/MIN (>=60); GFR NON AFRICAN AMERICAN 58 ML/MIN (>=60); GLUCOSE, SERUM 134 MG/DL (60-99); SODIUM, SERUM 141 MMOL/L (135-148); TROPONIN I 0.02 NG/ML (<0.05)
[2017-01-01 22:33] LABS: BUN (BLOOD UREA NITROGEN) 22 MG/DL (6-23); POTASSIUM, SERUM 4.3 MMOL/L (3.5-5.3)
[2017-01-02] MEDS ORDERED: LOP50 PO (00:15)
[2017-01-02] MEDS ORDERED: BETAP120 PO (00:15)
[2017-01-02] MEDS ORDERED: PEP20 PO (00:15)
[2017-01-02] MEDS ORDERED: XARELTO20 MG PO (00:15)
[2017-01-02] MEDS ORDERED: OCEAN NAS (00:16)
[2017-01-03 14:16] LABS: BASOPHILS 0.6 %; BASOPHILS ABSOLUTE 0.06 10/3/uL (0.0-0.16); EOSINOPHILS 1.8 %; EOSINOPHILS ABSOLUTE 0.19 10/3/uL (0.0-0.53); HEMATOCRIT 52.1 % (40.0-51.0); HEMOGLOBIN 18.6 g/dL (13.6-17.8); IMMATURE GRANULOCYTES 0.2 %; IMMATURE GRANULOCYTES ABSOLUTE 0.02 10/3/uL (0.0-0.11); LYMPHOCYTES ABSOLUTE 2.98 10/3/uL (0.67-4.30); MANUAL DIFF NO %; MEAN CORPUS HGB CONC 35.7 g/dL (32.0-36.0); MEAN CORPUSCULAR HEMOGLOB 31.6 pg (26.0-34.0); MEAN CORPUSCULAR VOLUME 88.5 fL (80-100); MEAN PLATELET VOLUME 9.8 fL (9.2-13.0); MONOCYTES ABSOLUTE 1.03 10/3/uL (0.21-1.20); NEUTROPHILS 58.4 %; NEUTROPHILS ABSOLUTE 6.01 10/3/uL (2.02-8.40); PLATELET COUNT 225 10/3/uL (150-400); RBC DISTRIBUTION WIDTH 12.6 % (12.0-16.0); RED CELL COUNT 5.89 10/6/uL (4.7-6.1); WHITE BLOOD CELLS 10.3 10/3/uL (4.5-10.5)
[2017-01-03 14:27] LABS: INTERNATIONAL NORMAL RATI 1.6 UNITS (-); PARTIAL THROMBO TIME 31.4 SEC (22.5-37.2); PROTIME (NOT ORD) 18.5 SEC (12.0-14.5)
[2017-01-04 05:33] LABS: BASOPHILS 0.4 %; BASOPHILS ABSOLUTE 0.04 10/3/uL (0.0-0.16); EOSINOPHILS 2.3 %; EOSINOPHILS ABSOLUTE 0.25 10/3/uL (0.0-0.53); HEMATOCRIT 52.1 % (40.0-51.0); HEMOGLOBIN 18.6 g/dL (13.6-17.8); IMMATURE GRANULOCYTES 0.3 %; IMMATURE GRANULOCYTES ABSOLUTE 0.03 10/3/uL (0.0-0.11); LYMPHOCYTES 37.5 %; LYMPHOCYTES ABSOLUTE 4.14 10/3/uL (0.67-4.30); MEAN CORPUS HGB CONC 35.7 g/dL (32.0-36.0); MEAN CORPUSCULAR HEMOGLOB 31.6 pg (26.0-34.0); MEAN CORPUSCULAR VOLUME 88.5 fL (80-100); MEAN PLATELET VOLUME 9.9 fL (9.2-13.0); MONOCYTES 9.3 %; MONOCYTES ABSOLUTE 1.03 10/3/uL (0.21-1.20); NEUTROPHILS 50.2 %; NEUTROPHILS ABSOLUTE 5.54 10/3/uL (2.02-8.40); PLATELET COUNT 210 10/3/uL (150-400); RBC DISTRIBUTION WIDTH 12.7 % (12.0-16.0); RED CELL COUNT 5.89 10/6/uL (4.7-6.1)
[2017-01-04 05:37] LABS: BUN (BLOOD UREA NITROGEN) 18 MG/DL (6-23); CALCIUM, SERUM 8.6 MG/DL (8.5-10.4); CHLORIDE, SERUM 105 MMOL/L (96-112); CHOL/HDL RATIO(NOT ORDER) 2.8 (0-5); CHOLESTEROL 153 MG/DL (< 200); CO2 (CARBON DIOXIDE) 22 MMOL/L (24-34); CREATININE 1.16 MG/DL (0.70-1.30); GFR AFRICAN AMERICAN 76 ML/MIN (>=60); GFR NON AFRICAN AMERICAN 66 ML/MIN (>=60); GLUCOSE, SERUM 113 MG/DL (60-99); HDL CHOLESTEROL 54 MG/DL (> 39); LDL CHOLESTEROL 80 MG/DL (< 130); NON-HDL CHOLESTEROL 99 MG/DL (< 160); POTASSIUM, SERUM 3.9 MMOL/L (3.5-5.3); SODIUM, SERUM 139 MMOL/L (135-148); TRIGLYCERIDE 96 MG/DL (< 150)
[2017-01-04 05:42] LABS: MANUAL DIFF NO %
[2017-01-04 06:37] LABS: INTERNATIONAL NORMAL RATI 1.2 UNITS (-)
[2017-01-04 06:39] LABS: PROTIME (NOT ORD) 15.2 SEC (12.0-14.5)
[2017-01-05 09:44] LABS: CALCIUM, SERUM 8.7 MG/DL (8.5-10.4); CHLORIDE, SERUM 107 MMOL/L (96-112); CO2 (CARBON DIOXIDE) 26 MMOL/L (24-34); CREATININE 1.04 MG/DL (0.70-1.30); GFR AFRICAN AMERICAN 87 ML/MIN (>=60); GFR NON AFRICAN AMERICAN 75 ML/MIN (>=60); SODIUM, SERUM 142 MMOL/L (135-148)
[2017-01-05 09:45] LABS: BUN (BLOOD UREA NITROGEN) 13 MG/DL (6-23); GLUCOSE, SERUM 89 MG/DL (60-99)
[2017-01-06 01:57] LABS: BASOPHILS 0.4 %; BASOPHILS ABSOLUTE 0.04 10/3/uL (0.0-0.16); EOSINOPHILS ABSOLUTE 0.21 10/3/uL (0.0-0.53); HEMATOCRIT 49.9 % (40.0-51.0); HEMOGLOBIN 18.3 g/dL (13.6-17.8); IMMATURE GRANULOCYTES 0.3 %; IMMATURE GRANULOCYTES ABSOLUTE 0.03 10/3/uL (0.0-0.11); LYMPHOCYTES 30.9 %; LYMPHOCYTES ABSOLUTE 3.22 10/3/uL (0.67-4.30); MANUAL DIFF NO %; MEAN CORPUS HGB CONC 36.7 g/dL (32.0-36.0); MEAN CORPUSCULAR HEMOGLOB 31.8 pg (26.0-34.0); MEAN CORPUSCULAR VOLUME 86.8 fL (80-100); MEAN PLATELET VOLUME 9.6 fL (9.2-13.0); MONOCYTES 9.9 %; MONOCYTES ABSOLUTE 1.03 10/3/uL (0.21-1.20); NEUTROPHILS 56.5 %; NEUTROPHILS ABSOLUTE 5.88 10/3/uL (2.02-8.40); PLATELET COUNT 226 10/3/uL (150-400); RBC DISTRIBUTION WIDTH 12.5 % (12.0-16.0); RED CELL COUNT 5.75 10/6/uL (4.7-6.1); WHITE BLOOD CELLS 10.4 10/3/uL (4.5-10.5)
[2017-01-06 02:08] LABS: BUN (BLOOD UREA NITROGEN) 16 MG/DL (6-23); CALCIUM, SERUM 8.8 MG/DL (8.5-10.4); CHLORIDE, SERUM 107 MMOL/L (96-112); CO2 (CARBON DIOXIDE) 27 MMOL/L (24-34); GFR AFRICAN AMERICAN 81 ML/MIN (>=60); GFR NON AFRICAN AMERICAN 70 ML/MIN (>=60); SODIUM, SERUM 142 MMOL/L (135-148)
[2017-01-06 02:09] LABS: GLUCOSE, SERUM 118 MG/DL (60-99)
[2017-01-06 02:12] LABS: BUN (BLOOD UREA NITROGEN) 16 MG/DL (6-23); CALCIUM, SERUM 8.8 MG/DL (8.5-10.4); CHLORIDE, SERUM 107 MMOL/L (96-112); CO2 (CARBON DIOXIDE) 27 MMOL/L (24-34); CREATININE 1.17 MG/DL (0.70-1.30); GFR AFRICAN AMERICAN 75 ML/MIN (>=60); GFR NON AFRICAN AMERICAN 65 ML/MIN (>=60); POTASSIUM, SERUM 4.1 MMOL/L (3.5-5.3); SODIUM, SERUM 141 MMOL/L (135-148)
[2017-01-06 02:16] LABS: GLUCOSE, SERUM 118 MG/DL (60-99)
[2017-01-06 02:38] LABS: PLATELET ESTIMATE ADQ (ADEQUATE); RBC MORPHOLOGY NORM (NORMAL)
== END 2017-01-07 11:40 | disposition home or self-care (01) | DRG 274 ==
LOC: ER 21:40 → 6NO 23:37 → SSU1 01-06 16:38
PROVIDERS: Emergency Medicine; Internal Medicine Cardiovascular Disease; Nurse Practitioner Family
PROC: 4A023N7 Measurement of Cardiac Sampling and Pressure, Left Heart, Percutaneous Approach (ICD-10-PCS; principal; 2017-01-04)
PROC: B2111ZZ Fluoroscopy of Multiple Coronary Arteries using Low Osmolar Contrast (ICD-10-PCS; 2017-01-04)
PROC: 02583ZZ Destruction of Conduction Mechanism, Percutaneous Approach (ICD-10-PCS; 2017-01-04)
PROC: 02K83ZZ Map Conduction Mechanism, Percutaneous Approach (ICD-10-PCS; 2017-01-06)
PROC: 4A023FZ Measurement of Cardiac Rhythm, Percutaneous Approach (ICD-10-PCS; 2017-01-06)
DX: I48.1 Persistent atrial fibrillation (principal); J44.9 Chronic obstructive pulmonary disease, unspecified; I10 Essential (primary) hypertension; I25.10 Atherosclerotic heart disease of native coronary artery without angina pectoris; I48.92 Unspecified atrial flutter; K21.9 Gastro-esophageal reflux disease without esophagitis; Z87.891 Personal history of nicotine dependence; Z82.49 Family history of ischemic heart disease and other diseases of the circulatory system; Z79.01 Long term (current) use of anticoagulants
CPT/HCPCS: 71020; 80048; 80061; 83735; 84484; 85025; 85347; 85610; 85730; 93005; 93458; 93613; 93655; 93656; 93662; 96374; 99152; 99291; A9270-GY; C1732; C1759; C1769; C1781; C1887; C1894; J0282; J0690; J1200; J2250; J2370; J2405; J2710; J2720; J3010; Q9967